=== PATIENT | male | born 1980 | race Caucasian/White ===

== ENCOUNTER 2017-01-27 20:16 | Emergency (ER) | payer BC ==
[~2017-01-27] VITALS: Ht 188 cm; Wt 130.2 kg
[2017-01-27] MEDS ORDERED: BENTYL20 MG PO (22:35)
[2017-01-27] MEDS ORDERED: COLACE100 MG PO (22:35)
[2017-01-27] MEDS ORDERED: GOLYTELY SOLU4000 ML PO (22:42)
[2017-01-27 23:00] VITALS: BP 141/90
== END 2017-01-27 23:00 | disposition home or self-care (01) ==
LOC: RME 20:16 → EME 20:16 → RME 23:00
DX: K59.00 Constipation, unspecified (principal); K58.9 Irritable bowel syndrome, unspecified; J45.909 Unspecified asthma, uncomplicated; K21.9 Gastro-esophageal reflux disease without esophagitis; F17.210 Nicotine dependence, cigarettes, uncomplicated
CPT/HCPCS: 74020; 99281; 99284